=== PATIENT | female | born 1980 | race Caucasian/White ===

== ENCOUNTER 2016-05-08 14:18 | Emergency (ER) | payer MEDICAID ==
[2012-09-11 17:52] VITALS: BMI 25.8
[2016-05-08 15:36] LABS: BASOPHILS 0.4 % (0.0-2.0); EOSINOPHILS 3.5 % (0-7); HEMATOCRIT 40.3 % (36.0-48.0); HEMOGLOBIN 13.4 g/dL (12-16); IMMATURE GRANULOCYTES 0.2 % (0-5); LYMPHOCYTES 30.7 % (15-50); MCH 31.9 pg (26.0-34.0); MCHC 33.3 g/dL (31.0-37.0); MEAN PLATELET VOLUME 10.6 fL (7.4-10.4); MONOCYTES 4.6 % (2-11); NEUTROPHILS 60.6 % (40-80); PLATELET COUNT 297 10x3/uL (130-400); RDW 12.7 % (11.5-14.5); WBC 9.5 10x3/uL (4.8-10.8)
== END 2016-05-08 17:00 | disposition home or self-care (01) ==
LOC: D.ER 14:18
PROVIDERS: Emergency Medicine
DX: R10.9 Unspecified abdominal pain (principal)